=== PATIENT | female | born 1950 | race Hispanic/Latino ===

== ENCOUNTER 2022-01-19 19:53 | Emergency (ER) | payer OTHER, MEDICARE ==
[2022-01-19 20:13] LABS: APPEARANCE,URINE CLEAR (CLEAR); BILIRUBIN,URINE NEGATIVE (NEGATIVE); COLOR,URINE COLORLESS (YELLOW); GLUCOSE, URINE (UA) >=1000 mg/dL (NEGATIVE); KETONES,URINE NEGATIVE (NEGATIVE); LEUKOCYTE ESTERASE ,URINE NEGATIVE Leu/uL (NEGATIVE); NITRATE,URINE NEGATIVE (NEGATIVE); OCCULT BLOOD,URINE NEGATIVE (NEGATIVE); PROTEIN,URINE NEGATIVE (NEGATIVE); UROBILINOGEN,URINE 0.2 mg/dL (0.2-1.0)
[2022-01-19 20:14] LABS: WBC,URINE 0-1 /HPF (0-1)
[2022-01-19] MEDS ORDERED: LIDOCAINE HCL 2% VISCOUS 15 ML UDCUP PO ONE (20:30)
[2022-01-19] MEDS ORDERED: MAG/ALUM/SIMETH 30 ML UDCUP PO ONE (20:30)
[2022-01-19] MEDS ORDERED: FAMOTIDINE 20MG VIAL IV ONE (20:30)
[2022-01-19] MEDS ORDERED: DICYCLOMINE HCL 10 MG/5 ML ML PO ONE (20:30)
[2022-01-19] MEDS ORDERED: ONDANSETRON 4MG INJ IVP ONE (20:30)
[2022-01-19 20:42] LABS: BASOPHILS % (AUTO) 0.4 % (0.0-5.0); EOSINOPHILS % (AUTO) 1.1 % (0.0-8.0); HEMATOCRIT 40.4 % (36-48); LYMPHOCYTES % (AUTO) 39.3 % (21.0-51.0); MEAN CORPUSCULAR HEMOGLOBIN 29.4 pg (27.0-33.0); MEAN CORPUSCULAR HGB CONC 34.4 g/dL (32.0-36.0); MEAN CORPUSCULAR VOLUME 85.6 fL (79-99); MONOCYTES % (AUTO) 8.4 % (3.0-13.0); NEUTROPHILS % (AUTO) 50.6 % (40.0-77.0); PLATELET COUNT (AUTO) 242 K/uL (130-400); RED BLOOD CELL COUNT(AUTO) 4.72 MIL/uL (4.00-5.50); RED CELL DISTRIBUTION WIDTH 13.5 % (11.0-15.5); WHITE BLOOD COUNT (AUTO) 5.5 K/uL (4.8-10.8)
[2022-01-19 20:52] LABS: INR 1.02 (0.85-1.15); PROTHROMBIN TIME 11.1 SEC (9.6-11.6)
[2022-01-19 20:53] LABS: PARTIAL THROMBOPLASTIN TIME 32.9 SEC (26.3-35.5)
[2022-01-19 21:03] LABS: ALBUMIN 4.4 g/dL (3.5-5.0); MAGNESIUM 1.7 mg/dL (1.80-2.40); TOTAL PROTEIN, SERUM 8.7 g/dL (6.0-8.3)
[2022-01-19 21:14] LABS: B-TYPE NATRIURETIC PEPTIDE 30 pg/mL (0-100)
[2022-01-19] MEDS ORDERED: POTASSIUM BICARB/CIT AC 25 MEQ TABLET.EFF PO ONE (21:30)
[2022-01-19 21:51] VITALS: BP 140/63
[2022-01-19] MEDS ORDERED: POTA-187 PO (22:08)
[2022-01-19] MEDS ORDERED: FAMO-136 PO (22:08)
== END 2022-01-19 22:38 | disposition home or self-care (01) ==
LOC: EDH 19:53
DX: K29.70 Gastritis, unspecified, without bleeding (principal); E87.6 Hypokalemia; R07.89 Other chest pain; E11.9 Type 2 diabetes mellitus without complications; I25.10 Atherosclerotic heart disease of native coronary artery without angina pectoris; Z90.49 Acquired absence of other specified parts of digestive tract; Z95.1 Presence of aortocoronary bypass graft
CPT/HCPCS: 99285; 96374; 71045; 96375; 83735; 84484 ×2; 80053; 83880; 83690; 85025; 85610; 85730; 81001; 36415; 93005; J3490; J2405

== ENCOUNTER 2023-06-22 21:48 | Emergency (ER) | payer OTHER, MEDICARE ==
[~2023-06-22] VITALS: Ht 157.5 cm; Wt 104.3 kg
[~2023-06-22 21:48] MED LIST: FAMO-136 PO; POTA-187 PO
[2023-06-22 22:48] VITALS: BP 161/74; PULSE 72; RESP 18
[2023-06-22] MEDS ORDERED: CYCL-309 PO (23:53)
[2023-06-22] MEDS ORDERED: GABA300C PO (23:53)
[2023-06-22] MEDS ORDERED: IBUP-1493 PO (23:53)
[2023-06-23] MEDS: CYCLOBENZAPRINE HCL 10 MG TABLET PO ONE (00:36)
[2023-06-23] MEDS: MORPHINE 2 MG SYG IM ONE (00:37)
[2023-06-23] MEDS: GABAPENTIN 300 MG CAPSULE PO SCH (00:37)
== END 2023-06-23 01:45 | disposition home or self-care (01) ==
LOC: EDH 21:48
DX: S16.1XXA Strain of muscle, fascia and tendon at neck level, initial encounter (principal); E11.9 Type 2 diabetes mellitus without complications; E66.9 Obesity, unspecified; E78.00 Pure hypercholesterolemia, unspecified; Z68.41 Body mass index [BMI] 40.0-44.9, adult; I10 Essential (primary) hypertension; Z79.1 Long term (current) use of non-steroidal anti-inflammatories (NSAID); Z79.899 Other long term (current) drug therapy; X58.XXXA Exposure to other specified factors, initial encounter; Y93.89 Activity, other specified; Y92.89 Other specified places as the place of occurrence of the external cause; Y99.8 Other external cause status
CPT/HCPCS: 99285; 72125; 96372; J2270